=== PATIENT | female | born 1980 | race Hispanic/Latino ===

== ENCOUNTER 2023-09-27 07:18 | Emergency (ER) | payer SELFPAY ==
[2023-09-27 07:31] VITALS: BP 92/65
--- NOTE | 2023-09-27 08:04 | ED.SKININJ ---
HPI-Injury
General
Chief Complaint: Skin Surface Trauma
Source: patient and spanish interpreter/translator ( interpreting on phone)
Exam Limitations: none
Time Seen by Provider: 09/27/23 07:47
Nursing documentation reviewed up to this point in time: agreed with
History of Present Illness-Injury
Initial Injury comments:
43-year-old female states she was cleaning in the kitchen this morning when the acrylic nail of her right thumb got caught and pulled the entire nail out from the root.
Past History
Past History
ED Past Medical History: None
ED Past Surgical History:
Review of Systems
Review of Systems
Allergies reviewed?: Yes
All Other Systems: ROS reviewed and negative except as documented in HPI and ROS
Skin: Reports other (avulsed right thumb nail)
Phy Exam
Physical Exam
Physical Exam:
PHYSICAL EXAMINATION:
General: no apparent distress, not acutely ill
Neuro: alert and oriented.
Psychiatric: well kept. interactive and cooperative
Musculoskeletal: Moves with ease
Skin: Warm, pink. The right thumb nail is completely avulsed, bleeding is minimal
Course
Orders/Labs/Results
Orders:
Orders
09/27/23 08:01
Ibuprofen [Motrin] 600 mg PO NOW STA
Vital Signs
Initial and Last Documented VS:
Initial Vital Signs
Temp Pulse Resp BP Pulse Ox
98.4 F 72 16 92/65 99
09/27/23 07:31 09/27/23 07:31 09/27/23 07:31 09/27/23 07:31 09/27/23 07:31
Last Documented Vital Signs
Temp Pulse Resp BP Pulse Ox
98.4 F 72 16 92/65 99
09/27/23 07:31 09/27/23 07:31 09/27/23 07:31 09/27/23 07:31 09/27/23 07:31
MDM/Problems Addressed
MDM/Problems Addressed:
43-year-old female states she was cleaning in the kitchen this morning when the acrylic nail of her right thumb got caught and pulled the entire nail out from the root.
Wound gently rinsed with NSS, ATB ointment, Vaseline gauze and gauze dressing applied
Aluminum helmet splint given to pt
*Critical Care Note
Total Time (30-74mins, 75-104mins- exclusive of procedures): Not Applicable
ED Attending Note
-
Portions of this chart may have been created with voice recognition software.� Occasional wrong word or��sound alike� substitutions may have occurred due to the inherent limitations of voice recognition software.
Discharge Plan
Departure
Patient Disposition: Home (Routine Discharge)
Date of Disposition: 09/27/23
Time of Disposition: 08:01
Patient with high blood pressure during this ER visit?: No
Condition: Good
Discharge Problem:
Avulsion of nail of right thumb
Instructions: Nail Avulsion (DC)
Referrals:
[facility] [Other] - As needed
NONE,* [Family Provider] -
Activity Restrictions/Additional Instructions:
As we discussed, keep the hand elevated slightly higher than your heart to minimize throbbing pains.
Tylenol or ibuprofen as needed for pain
Remove the dressing in 2 days, then gently cleanse the area daily, apply antibiotic ointment, Band-Aids and use the aluminum finger splint for protection as needed until the new nail grows in.
Interventions
Interventions:
*Risk Screen - Suicide Last Done: 09/27/23 07:52
*General Assessment Last Done: 09/27/23 07:52
*Neglect/Abuse Screening Last Done: 09/27/23 07:31
*ED COVID-19 Vaccine History Last Done: 09/27/23 07:31
*Nursing Disposition Last Done: 09/27/23 08:23
ED-Skin Assessment Last Done: 09/27/23 07:52
Discharge Date and Time
Discharge Date/Time: 09/27/23 08:24
Print Language: [id number]
[2023-09-27] MEDS: MOTRIN 600 MG PO (08:07)
== END 2023-09-27 08:24 | disposition home or self-care (01) ==
LOC: EMR 07:18
PROVIDERS: EMERGENCY PHYSICIAN Emergency Medicine
DX: S61.101A Unspecified open wound of right thumb with damage to nail, initial encounter (principal); X58.XXXA Exposure to other specified factors, initial encounter; Y93.E5 Activity, floor mopping and cleaning; Y92.000 Kitchen of unspecified non-institutional (private) residence as the place of occurrence of the external cause; Z91.048 Other nonmedicinal substance allergy status; K21.9 Gastro-esophageal reflux disease without esophagitis
CPT/HCPCS: 99283; 29130

== ENCOUNTER → 2023-11-23 11:01 | Outpatient (REF) | payer OTHER, SELFPAY ==
[2023-11-23 12:36] LABS: Hematocrit 40.5 % (37.0-47.0); Hemoglobin 13.6 g/dL (12.0-16.0); Mean Corp Hgb Conc. 33.6 g/dL (33.0-37.0); Mean Corpuscular Hgb 26.6 pg (27.0-31.0); Mean Corpuscular Volume 79.1 fL (81.0-99.0); Mean Platelet Volume 9.5 fL (7.4-10.4); Platelet Count 348 10^3/uL (130-400); Red Blood Cell Count 5.12 10^6/uL (4.20-5.40); Red Cell Dist. Width 13.3 % (11.5-14.5); White Blood Cell Count 6.1 10^3/uL (4.8-10.8)
== END ==
LOC: REG 11:01
PROVIDERS: ATTENDING PHYSICIAN Obstetrics & Gynecology Gynecology
DX: N92.4 Excessive bleeding in the premenopausal period (principal)
CPT/HCPCS: 36415; 85027

== ENCOUNTER → 2023-12-29 15:28 | Outpatient (REF) | payer OTHER, SELFPAY | LOC: CLINIC 15:28 | PROVIDERS: ATTENDING PHYSICIAN Obstetrics & Gynecology Gynecology | DX: R10.2 Pelvic and perineal pain (principal); N92.4 Excessive bleeding in the premenopausal period | CPT/HCPCS: 76830; 76856 ==

== ENCOUNTER → 2024-09-05 16:04 | Outpatient (REF) | payer OTHER, SELFPAY ==
[2024-09-05 16:50] LABS: Hematocrit 37.8 % (37.0-47.0); Hemoglobin 12.4 g/dL (12.0-16.0); Mean Corp Hgb Conc. 32.8 g/dL (33.0-37.0); Mean Corpuscular Hgb 26.3 pg (27.0-31.0); Mean Corpuscular Volume 80.3 fL (81.0-99.0); Mean Platelet Volume 9.7 fL (7.4-10.4); Platelet Count 338 10^3/uL (130-400); Red Blood Cell Count 4.71 10^6/uL (4.20-5.40); Red Cell Dist. Width 13.2 % (11.5-14.5); White Blood Cell Count 5.9 10^3/uL (4.8-10.8)
[2024-09-05 17:12] LABS: ALT (SGPT) 17 U/L (0-35); AST (SGOT) 23 U/L (14-36); Albumin 4.3 g/dl (3.5-5.0); Alkaline Phosphatase 50 U/L (38-126); Blood Urea Nitrogen 13 mg/dl (7-17); Calcium 9.6 mg/dl (8.4-10.2); Carbon Dioxide 29 mmol/L (22-30); Chloride 107 mmol/L (98-107); Glucose 86 mg/dl (70-99); Potassium 4.1 mmol/L (3.5-5.1); Sodium 139 mmol/L (135-145); Total Bilirubin 0.5 mg/dl (0.2-1.3); eGFR > 60.00
[2024-09-05 17:43] LABS: TSH Reflex To Free T4 0.51 uIU/ml (0.47-4.68)
[2024-09-08 04:49] LABS: H. pylori Breath Test Positive (Negative)
== END ==
LOC: CLINIC 16:04
PROVIDERS: ATTENDING PHYSICIAN Nurse Practitioner Adult Health
DX: R10.13 Epigastric pain (principal)
CPT/HCPCS: 36415; 80053; 83013; 84443; 85027

== ENCOUNTER → 2024-12-05 15:18 | Outpatient (REF) | payer OTHER, SELFPAY | LOC: CLINIC 15:18 | PROVIDERS: ATTENDING PHYSICIAN Nurse Practitioner Adult Health | DX: A04.8 Other specified bacterial intestinal infections (principal) | CPT/HCPCS: 36415; 83013 ==

== ENCOUNTER → 2025-02-06 14:39 | Outpatient (REF) | payer OTHER, SELFPAY | LOC: CLINIC 14:39 | PROVIDERS: ATTENDING PHYSICIAN Nurse Practitioner Adult Health | DX: A04.8 Other specified bacterial intestinal infections (principal) | CPT/HCPCS: 83013 ==